=== PATIENT | male | born 1990 | race Caucasian/White ===

== ENCOUNTER 2020-07-04 11:33 | Emergency (ER) | payer OTHER, SELFPAY ==
[2020-07-04 11:42] VITALS: BP 153/78; PULSE 94; RESP 14; TEMP 36.2; O2SAT 99
--- NOTE | 2020-07-04 11:42 | ED.GENADULT ---
HPI - General Adult General Chief complaint: Urogenital-Male Stated complaint: pos yeast inf Time Seen by Provider: 07/04/20 11:43 Source: patient Mode of arrival: ambulatory Limitations: no limitations History of Present Illness HPI narrative: 29-year-old male patient presents to the [facility] with complaints of a rash to the penis and some white discharge. Patient states that his girlfriend was recently treated for a yeast infection. Patient states that they did have sexual intercourse during the time that she had symptoms. Patient states that she was recently treated with a bunch of antibiotics after having abdominal surgery which is why they think she had a yeast infection. Patient states he does not have any concerns for any STDs due to the fact that he has only with 1 partner. Patient states that he does have burning at times with urination but denies any urgency or frequency. Related Data Allergies Allergy/AdvReac Type Severity Reaction Status Date / Time No Known Allergies Allergy Verified 07/04/20 11:57 Review of Systems Review of Systems: Narrative: CONSTITUTIONAL: Denies fever, chills, or sweats. EYES: Denies visual changes, redness, or discharge. ENT: Denies rhinorrhea, congestion, sore throat, or otalgia. CARDIOVASCULAR: Denies chest pain, palpitations, or edema. RESPIRATORY: Denies cough or dyspnea. GASTROINTESTINAL: Denies abdominal pain, nausea, vomiting, or diarrhea. GENITOURINARY: Denies dysuria or hematuria. Positive irritation and white discharge from penis x3 days SKIN: Denies rash or itching. MUSCULOSKELETAL: Denies back pain, joint pain, or myalgia. NEUROLOGIC: Denies headache, numbness, or weakness. PSYCHIATRIC: Denies anxiety or depression. PMFSH Comments At the time of my signature I agree with nursing past medical history, surgical, social, and family history. There is no relevant family history pertinent to the presenting complaint. Exam Narrative: Exam Narrative: GENERAL: Well-appearing, well-nourished, and in no acute distress. HEAD: Normocephalic, atraumatic. EYES: PERRLA and EOMI. ENT: Nares clear, no rhinorrhea or epistaxis. Mucous membranes moist. NECK: Supple. No lymphadenopathy CHEST: Clear to auscultation. No respiratory distress. HEART: Regular rate and rhythm. No murmur heard. Normal peripheral pulses. ABDOMEN: Soft, nontender, nondistended, normal active bowel sounds. : Normal external genitalia, uncircumcised male. No lesions. There is some white bumpy rash with a little bit of red irritation noted around the head of the penis. No obvious discharge noted at this time. Urinary meat us clear. Foreskin retracts easily. EXTREMITIES: Normal range of motion. No edema. SKIN: Warm, dry, no rash. NEURO: No focal deficits. Alert and oriented x3. Course Vital Signs Vital signs: Vital Signs Temperature 36.2 C L 07/04/20 11:42 Pulse Rate 94 07/04/20 11:42 Respiratory Rate 14 07/04/20 11:42 Blood Pressure 153/78 H 07/04/20 11:42 Pulse Oximetry 99 07/04/20 11:42 Temperature 36.2 C L 07/04/20 11:42 Pulse Rate 94 07/04/20 11:42 Respiratory Rate 14 07/04/20 11:42 Blood Pressure 153/78 H 07/04/20 11:42 Pulse Oximetry 99 07/04/20 11:42 Vital signs reviewed The patient has been informed that they may have pre-hypertension or Hypertension based on a BP reading in the department. I recommend that the patient call the primary care provider listed on their discharge instructions or a physician of their choice this week to arrange follow up for further evaluation of possible pre-hypertension or Hypertension Medical Decision Making Differential Diagnosis Differential Diagnosis: Differential diagnosis: Contact dermatitis, poison lei, poison sumac, psoriasis, eczema, allergic reaction, drug reaction, scabies, tinea syphilis, lung disease, viral exanthema, pityriasis, erythema multiforme. Uncomplicated lower UTI, uncomplicated UTI, polynephritis, penile trauma,carmelo
== END 2020-07-04 12:13 | disposition home or self-care (01) ==
PROVIDERS: Emergency Provider Nurse Practitioner Family
DX: B37.49 Other urogenital candidiasis (principal)
CPT/HCPCS: 81003; 87086; 87088; 99213; G0463

== ENCOUNTER 2020-07-29 10:44 | Outpatient (CLI) | payer OTHER, SELFPAY ==
[2020-07-29 11:39] LABS: Alanine Aminotransferase 36 U/L (4-50); Albumin Level 4.4 g/dL (3.5-5.1); Alkaline Phosphatase 74 U/L (38-126); Anion Gap 5 mmol/L (8-16); Aspartate Amino Transferase 30 U/L (17-59); Bilirubin,Total 1.4 mg/dL (0.2-1.3); Blood Urea Nitrogen 14 mg/dL (9-20); Calcium 9.2 mg/dL (8.4-10.2); Carbon Dioxide 30 mmol/L (22-30); Chloride 103 mmol/L (98-107); Cholesterol 165 mg/dL (0-200); Estimated Glomerular Filt Rate > 60; Glucose 98 mg/dL (75-110); HDL Direct 37 mg/dL; Potassium 4.4 mmol/L (3.4-5.0); Sodium 138 mmol/L (137-145); Triglycerides 88 mg/dL (<150)
[2020-07-29 11:50] LABS: LDL Cholesterol Direct 113 mg/dL
[2020-07-29 12:08] LABS: Thyroid Stimulating Hormone 0.932 uIU/mL (0.465-4.680)
== END 2020-07-29 10:45 | disposition home or self-care (01) ==
PROVIDERS: PCP Family Medicine; Visit Provider Nurse Practitioner Family
DX: Z13.220 Encounter for screening for lipoid disorders (principal); Z13.29 Encounter for screening for other suspected endocrine disorder; Z68.39 Body mass index [BMI] 39.0-39.9, adult
CPT/HCPCS: 36415; 80053; 80061; 84443

== ENCOUNTER 2020-09-07 12:13 | Outpatient (CLI) | payer OTHER, SELFPAY ==
--- NOTE | ~2020-09-07 | XR_ITS ---
XR foot RT min 3V DATE: 09/07/2020 12:29 INDICATION: Right lateral foot pain TECHNIQUE: 4 views COMPARISON: None FINDINGS: There is minimal posterior calcaneal enthesopathy. No fracture, dislocation, periosteal reaction or bone destruction or erosive change is detected. IMPRESSION: Minimal posterior calcaneal enthesopathy Reviewed, dictated and finalized at location B.
== END 2020-09-07 12:14 | disposition home or self-care (01) ==
LOC: ANHIMG 12:19
PROVIDERS: PCP Family Medicine; Visit Provider Nurse Practitioner Family
DX: M79.671 Pain in right foot (principal)
CPT/HCPCS: 73630